=== PATIENT | male | born 1970 | race Caucasian/White ===

== ENCOUNTER 2017-03-06 19:26 | Emergency (ER) | payer BC ==
[2017-03-06 19:31] VITALS: BP 157/93; BMI 34.0
--- NOTE | 2017-03-06 20:52 | DR.SOBA ---
HPI - Time Seen Time seen: 20:05 - Primary Care Physician Primary Care Physician: SHAKILA - Complaints Chief Complaint Doctors Comments: History as stated. Denies a history of cardiopulmonary disease. Chief Complaint:: "I HAVE BEEN HAVING SHORTNESS OF BREATH FOR THE LAST MONTH AND WEAKNESS IN MY LEGS. TODAY HAS BEEN WORSE. " - Source History Provided: Patient - Mode of Arrival Mode of Arrival: Ambulatory - Timing Onset of Chief Complaint: 02/04/17 PMH - PMH Past Medical History: Yes Past Medical History: Hypertension Past Surgical History: No - Family History History of Family Medical Conditions: No - Social History Does patient currently use any type of tobacco product: No Have you used tobacco products in the last 12 months: No Type of Tobacco Use: None Does any household member use tobacco: No Alcohol Use: DAILY Do you use any recreational Drugs:: No Lives With: Family Lives Where: Home - infectious screening Have you traveled outside the country in the last 6 months?: No Isolation: Standard ROS - Review of Systems Eyes: No Symptoms Reported ENTM: No Symptoms Reported Respiratoy: No Symptoms Reported Cardiovascular: No Symptoms Reported Gastrointestinal/Abdominal: No Symptoms Reported Genitourinary: No Symptoms Reported Neurological: No Symptoms Reported Musculoskeletal: No Symptoms Reported Integumentary: No Symptoms Reported Hematologic/Lymphatic: No Symptoms Reported Endocrine: No Symptoms Reported Psychiatric: No Symptoms Reported All Other Systems: Reviewed and Negative PE - Vital Signs Vitals: Pulse Rate 80 Respiratory Rate 16 Blood Pressure 157/93 O2 Sat by Pulse Oximetry 96 - General Limitations: No Limitations General Appearance: Alert, In No Apparent Distress, Appears Intoxicated - Head Head Exam: Normal Inspection, Atraumatic - Eyes Eye exam: Normal Appearance, PERRL, EOMI - ENT ENT Exam: Normal Exam - Neck Neck Exam: Normal Inspection, Full ROM - Chest Chest Inspection: Normal Inspection - Respiratory Respiratory Exam: Normal Lung Sounds Bilat Respiratory Exam: Bilateral Clear to Auscultation - Cardiovascular Cardiovascular Exam: Regular Rate, Normal Rhythm - Abdominal Exam Abdominal Exam: Normal Inspection Abdominal Tenderness: negative: RUQ, RLQ, LUQ, LLQ, Epigastrium, Suprapubic, Diffuse, Mild, Moderate, Severe, Other - Extremities Extremities Exam: Normal Inspection, Full ROM - Back Back Exam: Normal Inspection, Full ROM - Neurologic Neurological Exam: Alert, Oriented X3, CN II-XII Intact - Psychiatric Psychiatric Exam: Normal Affect - Skin Skin Exam: Warm, Dry, Intact ROR - Labs Reviewed Result Diagrams: 03/06/17 21:09 03/06/17 21:09 Laboratory: WBC 7.6 X10^3/uL (3.6-10.0) 03/06/17 21:09 RBC 4.72 X10^6/uL (4.7-6.0) 03/06/17 21:09 Hgb 14.7 g/dL (13.5-18.0) 03/06/17 21:09 Hct 41.9 % (42.0-54.0) L 03/06/17 21:09 MCV 88.9 fL (80.0-100.0) 03/06/17 21:09 MCH 31.2 pg (27.0-34.0) 03/06/17 21:09 MCHC 35.1 g/dL (33.0-35.0) H 03/06/17 21:09 RDW 14.0 % (11.6-16.5) 03/06/17 21:09 Plt Count 225 X10^3/uL (150.0-450.0) 03/06/17 21:09 MPV 8.3 fL (7.4-11.0) 03/06/17 21:09 Neut % 57.3 % (42.0-75.0) 03/06/17 21:09 Lymph % 28.1 % (21.0-51.0) 03/06/17 21:09 Steele % 11.1 % (0.0-13.0) 03/06/17 21:09 Eos % 2.0 % (0.9-2.9) 03/06/17 21:09 Baso % 1.5 % (0.2-1.0) H 03/06/17 21:09 Neut # 4.3 x10^3/uL (2.2-4.8) 03/06/17 21:09 Lymph # 2.1 X10^3/uL (1.3-2.9) 03/06/17 21:09 Steele # 0.8 x10^3/uL (0.3-0.8) 03/06/17 21:09 Eos # 0.1 x10^3/uL (0.0-0.2) 03/06/17 21:09 Baso # 0.1 X10^3/uL (0.0-0.1) 03/06/17 21:09 Absolute Nucleated RBC 0.0 /100WBC 03/06/17 21:09 Sodium 141 mmol/L (136-145) 03/06/17 21:09 Corrected Sodium 141 mmol/L (136-145) 03/06/17 21:09 Potassium 3.6 mmol/L (3.5-5.1) 03/06/17 21:09 Chloride 106 mmol/L (98-107) 03/06/17 21:09 Carbon Dioxide 28.9 mmol/L (21-32) 03/06/17 21:09 BUN 10 mg/dL (7-18) 03/06/17 21:09 Creatinine 1.27 mg/dL (0.70-1.30) 03/06/17 21:09 Est GFR (MDRD) Af Amer > 60 (>60) 03/06/17 21:09 Est GFR (MDRD) Non-Af > 60 (>60) 03/06/17 21:09 Glucose 111 mg/dL (65-99) H 03/06/17 21:09 Calcium 8.8 mg/dL (8.5-10.1) 03/06/17 21:09 B-Natriuretic Peptide 29.3 pg/mL (0-79) 03/06/17 21:09 - Diagnosis Discharge Problem: Dyspnea Qualifiers: Dyspnea type: shortness of breath Qualified Code(s): R06.02 - Shortness of breath; R06.00 - Dyspnea, unspecified; R06.01 - Orthopnea - Discharge Plan Condition: Stable - Follow ups/Referrals Follow ups/Referrals: RHINA JHAVERI [Primary Care Provider] - 3 days - Instructions
[2017-03-06 21:17] LABS: BASOPHILS # (AUTO) 0.1 X10^3/uL (0.0-0.1); BASOPHILS % (AUTO) 1.5 % (0.2-1.0); EOSINOPHILS # (AUTO) 0.1 x10^3/uL (0.0-0.2); HEMATOCRIT 41.9 % (42.0-54.0); HEMOGLOBIN 14.7 g/dL (13.5-18.0); LYMPHOCYTES # (AUTO) 2.1 X10^3/uL (1.3-2.9); LYMPHOCYTES % (AUTO) 28.1 % (21.0-51.0); MEAN CORPUSCULAR HEMOGLOBIN 31.2 pg (27.0-34.0); MEAN CORPUSCULAR HGB CONC 35.1 g/dL (33.0-35.0); MEAN CORPUSCULAR VOLUME 88.9 fL (80.0-100.0); MEAN PLATELET VOLUME 8.3 fL (7.4-11.0); MONOCYTES # (AUTO) 0.8 x10^3/uL (0.3-0.8); MONOCYTES % (AUTO) 11.1 % (0.0-13.0); NEUTROPHILS # (AUTO) 4.3 x10^3/uL (2.2-4.8); NEUTROPHILS % (AUTO) 57.3 % (42.0-75.0); PLATELET COUNT 225 X10^3/uL (150.0-450.0); RED BLOOD COUNT 4.72 X10^6/uL (4.7-6.0); WHITE BLOOD COUNT 7.6 X10^3/uL (3.6-10.0)
[2017-03-06 21:24] LABS: BLOOD UREA NITROGEN 10 mg/dL (7-18); CALCIUM 8.8 mg/dL (8.5-10.1); CARBON DIOXIDE 28.9 mmol/L (21-32); CHLORIDE 106 mmol/L (98-107); COR NA(FOR HYPERGLY) 141 mmol/L (136-145); CREATININE 1.27 mg/dL (0.70-1.30); SODIUM 141 mmol/L (136-145); eGFR BLACK RACES > 60 (>60); eGFR NON BLACK RACES > 60 (>60)
--- NOTE | 2017-03-06 21:29 | RAD ---
HISTORY: 47-year-old male with chest pain. Study: Frontal view of the chest. Comparison: None. Findings: The trachea is midline. The cardiac silhouette is unremarkable. The lungs are clear without focal c onsolidation, effusion or pneumothorax. Soft tissues are unremarkable. Osseous structures are unrema rkable. IMPRESSION: 1. No acute cardiopulmonary disease. Reported By:
[2017-03-06 21:36] LABS: B-TYPE NATRIURETIC PEPTIDE 29.3 pg/mL (0-79)
== END 2017-03-06 22:20 | disposition home or self-care (01) ==
LOC: ER 19:34
DX: R06.02 Shortness of breath (principal); R06.00 Dyspnea, unspecified; R06.01 Orthopnea
CPT/HCPCS: 36415; 71010; 80048; 83880; 85025; 93005; 93010; 99283